=== PATIENT | female | born 1955 | race Caucasian/White ===

== ENCOUNTER → 2019-06-28 08:11 | Outpatient (CLI) | payer OTHER, SELFPAY ==
[2019-06-28 08:26] LABS: WBC Urine None Seen (0-5/HPF)
[2019-06-28 08:43] LABS: Appearance Urine UA CLEAR; Bilirubin Urine UA NEGATIVE (NEGATIVE); Color Urine UA YELLOW; Glucose Urine UA NEGATIVE (Negative); Ketones Urine UA NEGATIVE (NEGATIVE); Leukocyte Esterase Urine UA NEGATIVE (NEGATIVE); Nitrite Urine UA POSITIVE (Negative); Occult Blood Urine UA 1+ (Negative); Protein Urine UA NEGATIVE (Negative); Urobilinogen Urine UA 0.2 E.U./dL (0.2)
[2019-06-28 08:46] LABS: Add Manual Diff / Slide Review NO; Basophils Absolute Auto 100 /uL (0-100); Basophils Percent Auto 1.4 % (0-2); Eosinophils Absolute Auto 100 /uL (0-450); Eosinophils Percent Auto 2.4 % (2-4); Hematocrit 42.7 % (36-46); Hemoglobin 14.6 g/dL (12.0-16.0); Lymphocytes Absolute Auto 1900 /uL (1100-4500); Lymphocytes Percent Auto 39.1 % (25-40); Mean Corpuscular HGB Conc 34.3 % (30-36); Mean Corpuscular Hemoglobin 31.6 PG (26-34); Mean Corpuscular Volume 92.3 fL (80-100); Monocytes Absolute Auto 400 /uL (0-900); Monocytes Percent Auto 7.7 % (3-14); Neutrophils Absolute Auto 2400 /uL (1500-7000); Neutrophils Percent Auto 49.4 % (50-75); Platelet Count 349 X10^3/uL (150-400); Red Blood Cell Count 4.63 X10^6/uL (4.0-5.2); Red Cell Distribution Width 13.4 % (11.6-14.8); White Blood Cell Count 4.8 X10^3/uL (4.5-11.0)
[2019-06-28 08:51] LABS: RBC Urine 5-10/HPF (0-5/HPF); Squamous Epithelial Cell Urine 0-1 /HPF (0-5/HPF)
[2019-06-28 08:52] LABS: Bacteria Urine Many (>30); Culture Indicated Urine Specimen Cultured
[2019-06-28 08:59] LABS: Hemoglobin A1C% w Est Avg Glu 5.1 % (4.0-6.0)
[2019-06-28 09:04] LABS: BUN Creatinine Ratio 25.6 (6-22); Blood Urea Nitrogen 23 mg/dL (7-17); Calcium 10.3 mg/dL (8.4-10.2); Carbon Dioxide 30 mmol/L (22-32); Chloride 102 mmol/L (98-107); Estimated Glomerular Filt Rate > 60.0 mL/min (>60); Glucose 100 mg/dL (80-110); HEMOLYSIS < 15 (0-50); Potassium 4.8 mmol/L (3.4-5.1); Sodium 139 mmol/L (137-145)
== END ==
PROVIDERS: Referring Provider Orthopaedic Surgery; Visit Provider Orthopaedic Surgery
DX: Z01.818 Encounter for other preprocedural examination (principal); Z01.812 Encounter for preprocedural laboratory examination; N39.9 Disorder of urinary system, unspecified; Z13.1 Encounter for screening for diabetes mellitus; R73.9 Hyperglycemia, unspecified
CPT/HCPCS: 36415; 80048; 81001; 83036; 85025; 87077; 87086; 93005; 93010

== ENCOUNTER → 2019-10-07 11:47 | Outpatient (CLI) | payer OTHER, SELFPAY ==
[2019-10-08 01:49] LABS: COVID19 Sendout Not Detected (Not Detect)
== END ==
PROVIDERS: Visit Provider Physician Assistant
DX: Z01.812 Encounter for preprocedural laboratory examination (principal)
CPT/HCPCS: 87635

== ENCOUNTER 2019-10-10 10:07 | Day surgery (SDC) | payer OTHER, SELFPAY ==
[2019-10-08 12:49] VITALS: BMI 27.1
[2019-10-10] VITALS (18 sets, daily range): BP systolic 111–136; BP diastolic 49–80; PULSE 69–97; RESP 10–18; TEMP 36.2–37.7; O2SAT 92–99; BMI 27.1
--- NOTE | 2019-10-10 | DI.RAD.S_ITS ---
PROCEDURE: XR HIP W PEL IF DONE LT 2V INDICATIONS: HIP ARTHROPLASTY TECHNIQUE: AP pelvis with lateral view(s) of the left hip(s). COMPARISON: None. FINDINGS: Spot fluoroscopic intraoperative images demonstrating left hip arthroplasty in expected intraoperative alignment. Dictated by: Aldo Tellez M.D. on 10/10/2019 at 15:51 Approved by: Aldo Tellez M.D. on 10/10/2019 at 15:52
--- NOTE | 2019-10-10 06:00 | DI.RAD.S_ITS ---
PROCEDURE: XR HIP W PEL IF DONE LT 2V INDICATIONS: total hip TECHNIQUE: AP pelvis with lateral view(s) of the left hip(s). COMPARISON: [facility], , XR HIP W PEL IF DONE LT 2V, 10/10/2019, 14:59. FINDINGS: Bones: No fractures or dislocations. Pelvic ring appears intact. No suspicious bony lesions. Lower lumbar spondylosis and facet arthropathy. Expected postoperative alignment of left hip arthroplasty. [id number] right hip joint degeneration. Soft tissues: The visualized bowel gas pattern is normal. No suspicious soft tissue calcifications. IMPRESSION: Expected postoperative alignment Dictated by: Aldo Tellez M.D. on 10/10/2019 at 16:44 Approved by: Aldo Tellez M.D. on 10/10/2019 at 16:46
[2019-10-10] MEDS: VANCOMYCIN 1,000 MG/200 ML PIGGYBACK 200 MG IV (11:02)
[2019-10-10] MEDS: ACETAMINOPHEN 325 MG TABLET 975 MG PO (11:07)
[2019-10-10] MEDS: LACTATED RINGERS 1,000 ML 42 ML IV ×2 (11:07→13:31)
[2019-10-10] MEDS: CELECOXIB 200 MG CAPSULE PO (11:08)
--- NOTE | 2019-10-10 11:21 | PM.PREOP ---
Pre-operative Note COVID-19 COVID-19 status: Negative Interval Note History & Physical reviewed/Exam performed by Physician: Yes Changes to H&P: No
--- NOTE | 2019-10-10 11:22 | PM.OP.1 ---
Operative Date/Time/Diagnoses Date of procedure: 10/10/19 Time of procedure: 11:58 Pre-op diagnosis: Severe left hip osteoarthritis Post-op diagnosis: same Procedure & Clinicians Procedure: Left total hip arthroplasty anterior approach Same procedure as scheduled: Yes Indications: The patient has had progressively worsening left hip pain with radiographic changes consistent with arthritis. Non-operative management has failed and the patient has requested total hip replacement. The risks, benefits and alternatives to surgery were discussed with the patient prior to proceeding. Risks discussed included, but were not limited to, failure to relieve pain, leg length discrepancy, dislocation, stiffness, infection, nerve damage, deep venous thrombosis, pulmonary embolism, stroke, coma, heart attack, permanent paralysis and , as well as the potential need for eventual revision of the prosthetic. Surgeon: Jen Vargas Technical Documentation Specialist: Yao Stokes Anesthesia Type: General and Spinal Operative Notes Findings: Severe left hip osteoarthritis, good stability, adequate bone Closure Type: primary Specimen(s): none sent Prosthetic devices, grafts, tissues, transplants, or devices: Vargas and Nephew size 52 cup, size 3 anthology standard offset femur, +0 head, one 15 mm screw Estimated Blood Loss (mL): 250 Blood products transfused: none Procedure in detail: The patient was brought to the operating room. Patient was carefully positioned in the supine position. Time-out was performed and antibiotics were given. Anesthesia was induced. She was positioned in the on the table in order to allow hyperextension of the hip. The left lower extremity was prepped and draped in a standard sterile fashion. An anterior left hip incision was made 1 fingerbreadth lateral to the anterior superior iliac spine and extended distally towards the greater trochanter. Dissection was carried out through skin and subcutaneous tissues. The skin and subcutaneous tissues were carefully injected with Lidocaine with epi. Superficial hemostasis was achieved. The fascia over the tensor fascia veda was defined and incised with a knife. Two Allis clamps were used to grasp the fascia. Tensor fascia veda was retracted laterally. A gelpi retractor was placed. Dissection was carried out down along the neck. The circumflex vessels were carefully identified and cauterized with the Aqua Mantis. There was good visualization of the femoral neck. A Cobra was placed superior to the neck and the gluteus fibers were carefully stripped from that superior aspect of the capsule. A 2nd retractor was placed along the inferior aspect of the neck. The rectus insertion along the capsule was partially released. A 3rd retractor that was then gently placed over the rim of the acetabulum under the rectus. Capsule was carefully incised and released from the intertrochanteric line circumferentially superior to the mid sagittal line and inferiorly to the mid sagittal line until the lesser trochanter was palpable. A tag stitch was placed both in the superior and inferior limb of the capsular insertion. Along the acetabulum capsule was also released up to the mid sagittal 12:00 position. A portion of the labrum was resected. A saw was used to perform an osteotomy at the level of the intertrochanteric line and the junction of the superior femoral neck leaving approximately 1 finger breath of residual inferior neck above the lesser trochanter. A 2nd cut was made along the femoral neck at the base of the head and a napkin ring of neck was removed. Corkscrew was placed in the femoral head and the head was removed without difficulty. Retractors were then repositioned around the acetabulum. Residual labrum was resected and additional osteophytes were removed. A reamer that was 4 mm below the templated size was placed by hand in the acetabulum and it was reamed to centralize the acetabulum. It was then reamed up to 2 under the templated size and fluoroscopy was brought in to confirm the position of the reaming and depth of reaming. I reamed 1 under the anticipated size. She had very tight hip and an inflamed synovium. A trial cup was placed and noted that it was appropriately sized and fluoroscopy confirmed position and depth. The component was open and inserted without difficulty fluoroscopic imaging was used to confirm that the cup had been adequately seated and was well positioned. It was further seeing stabilized with a single screw. Neutral poly liner was placed. The cup was tested and noted to be stable. Attention was then directed to the femur. The femur was gently hyperextended additional capsular release was performed as needed in order to allow adequate visualization of the proximal femur with elevation of the femur. Patient was placed in a hyperextended slightly adducted position with maximum external rotation. Box osteotome was used to check for any residual neck as well as sclerotic bone along the trochanter. Villanueva pepper was placed in the femur. Additional broaching was performed. Canal finder was used to determine the alignment of the canal and position. Size 1 broach was placed. The canal was then appropriately broached up to the templated size as long as there was adequate stability of the broach and serial advancement of the broach without excessive impingement. Specific attention was directed at avoiding varus attempting to direct the distal aspect of the broach more anteriorly and avoiding excessive anteversion. Trial reduction showed acceptable range of motion, good stability, no posterior impingement, religious of leg length and appropriate lateral shuck. I also hyperflexed the hip and checked that there was no impingement anteriorly and there was good stability with flexion, adduction and internal rotation. Marcaine and Exparel were injected. The stem was placed without difficulty. Repeat trial reduction and x-ray showed acceptable overall position, length, and no evidence of the femoral fracture. Final head was placed. Wound was meticulously irrigated with normal saline. The hip was reduced and additional Exparel and Marcaine were injected. The capsule was closed with interrupted nonabsorbable sutures. The fascia of the tensor was closed with interrupted and running Vicryl. No drain was placed. Any tensor fascia veda muscle that appeared to be contused or injured which was a minimal amount was carefully resected. Capsule around the tensor was injected with Exparel and Marcaine. The skin was closed with barbed stitches for the subcutaneous tissue and skin. We also used surgical glue. The wound was dressed sterilely. Brief Betadine soak was also used and was meticulously irrigated with normal saline. Patient was transferred to recovery room in satisfactory condition. Complications: none Post-operative Condition: stable Disposition: Acute Care Plan for aftercare: The patient will be maintained on a standard total hip replacement protocol with weight bearing as tolerated and anterior hip precautions. The patient will receive Aspirin and sequential compression devices for DVT prophylaxis. The patient will be discharged home when safe for the home environment.
[2019-10-10] MEDS: CEFAZOLIN 2 GM/100 ML FROZ.PIGGY IV ×2 (12:30→20:06)
[2019-10-10] MEDS: TRANEXAMIC ACID 1,000 MG VIAL 1000 MG INJ ×2 (12:39→15:22)
--- NOTE | 2019-10-10 13:03 | SUR.OPER ---
Supine on padded [place] table with bilateral legs secured in padded positioning boots and suspended in positioning spars, operative leg in traction per surgeon. Head on one pillow. Arm on non-operative side secured on padded armboard <90 degrees abduction. Arm on operative side padded and resting across chest then secured with tape over sheet. Padded perineal post in place per surgeon.
[2019-10-10] MEDS: BUPIVACAINE 0.25% W/ EPI 30 ML VIAL 60 ML INJ (13:10)
[2019-10-10] MEDS: BUPIVACAINE LIPOSOME 266 MG/20 ML VIAL INJ (13:11)
[2019-10-10] MEDS: SODIUM CHLORIDE IRRIG SOLUTION 250 ML, POVIDONE-IODINE SPONGE STICKS 1 APPLIC IRR (13:12)
[2019-10-10] MEDS: MEPERIDINE 50 MG/ML INJ 12.5 MG IV ×2 (15:58→16:14)
[2019-10-10] MEDS: ONDANSETRON 4 MG/2 ML INJ IV (16:17)
[2019-10-10] MEDS: OXYCODONE IR 5 MG TABLET PO (16:17)
[2019-10-10] MEDS: LACTATED RINGERS 1,000 ML 125 ML IV (17:28)
[2019-10-10] MEDS: IBUPROFEN 400 MG TABLET PO (17:29)
[2019-10-10] MEDS: ASPIRIN EC 81 MG TABLET PO (20:06)
[2019-10-10] MEDS: ACETAMINOPHEN 325 MG TABLET 650 MG PO (20:06)
[2019-10-10] MEDS: DOCUSATE 100 MG CAPSULE PO (20:07)
[2019-10-11] MEDS: IBUPROFEN 400 MG TABLET PO ×3 (00:53→08:34)
[2019-10-11] MEDS: LACTATED RINGERS 1,000 ML 125 ML IV (01:35)
[2019-10-11] MEDS: CEFAZOLIN 2 GM/100 ML FROZ.PIGGY IV (04:14)
[2019-10-11 04:38] VITALS: BP 104/57; PULSE 77; RESP 16; TEMP 36.4; O2SAT 97
[2019-10-11 06:05] LABS: Hematocrit 29.7 % (36-46); Hemoglobin 10.2 g/dL (12.0-16.0)
[2019-10-11 07:50] VITALS: BP 95/44; PULSE 71; RESP 16; TEMP 36.6; O2SAT 97
--- NOTE | 2019-10-11 08:15 | PC.NURSE ---
Patients anterior left hip dressing is cdi. She is up with 1 person assist and denies pain at this time. She is heplocked and eating breakfast now. CMS wnl and ppx2.
[2019-10-11] MEDS: DOCUSATE 100 MG CAPSULE PO (08:34)
[2019-10-11] MEDS: ACETAMINOPHEN 325 MG TABLET 650 MG PO (08:34)
[2019-10-11] MEDS: ASPIRIN EC 81 MG TABLET PO (08:34)
--- NOTE | 2019-10-11 09:30 | PT.IIE ---
Current Diagnoses Bilateral primary osteoarthritis of hip (10/10/19) Pain in left hip (10/10/19) Surgery Performed Operation Date: 10/10/19 12:15 Actual Procedures p Total Hip Arthroplasty/Anterior Approach(Left) - Jen Vargas MD Surgical History (Last Updated 10/08/19 @ 13:13 by Brandi Pradhan, RN) History of bunionectomy of left great toe (Acute 10/2018) History of partial hysterectomy (Acute) Hx of foot surgery (Acute 10/2018) Hx of left breast biopsy (Acute 10/02/19) Hx of tonsillectomy (Acute) S/P LASIK surgery of both eyes (Acute) Medical History (Last Updated 10/08/19 @ 13:02 by Brandi Pradhan RN) Migraines (Acute) Physical Therapy Inpatient Evaluation/Re-Eval M1 PT/OT-IP Prior Functional Status Start: 10/11/19 12:54 Freq: NEEDED Status: Active Protocol: Document 10/11/19 09:30 AB (Rec: 10/11/19 13:22 AB [id number]) Medical Review Prior Functional Status Medical History Reviewed Yes Communication able to make needs known Mobility and Gait pt agreeable to do PT Social History Household Members spouse Living Arrangements House Number of Floors (Floors) One Floor Number of Stairs To Enter/Railing? 1 step to enter Home Environment Standard Height Toilet,Walk in Shower,Built-In Shower Seat Home Equipment Front Wheel Walker,Hand Held Shower M2 PT-IP Current Condition Start: 10/11/19 12:54 Freq: NEEDED Status: Active Protocol: Document 10/11/19 09:30 AB (Rec: 10/11/19 13:22 AB [id number]) Physical Therapy Current Condition Current Condition Evaluation Date 10/11/19 Treatment Diagnosis s/p L VIRGIL anterior approach; difficulty in walking Onset Date 10/10/19 Precautions Anterior Hip Precautions No Hip Extension,No Hip External Rotation Weight Bearing Status Weight Bearing Status Weight Bear as Tolerated M3 PT-IP Subjective Start: 10/11/19 12:54 Freq: NEEDED Status: Active Protocol: Document 10/11/19 09:30 AB (Rec: 10/11/19 13:22 AB [id number]) Subjective Physical Therapy Visit Type Type Initial Evaluation Visit Start Time 09:30 Visit Stop Time 10:35 Total Visit Minutes 65 Number of PACKAGE CRIMPER Visits 0 Physical Therapy Visit Comments Patient Comments pt is agreeable to do PT Therapy Pain Assessment Pain Present Pain Present Denied Pain M4 PT-IP Mobility and Gait Start: 10/11/19 12:54 Freq: NEEDED Status: Active Protocol: Document 10/11/19 09:30 AB (Rec: 10/11/19 13:22 AB [id number]) PT-Bed Mobility Assessment Supine to Sit Supine to Sit Standby Assistance Sit to Supine Sit to Supine Standby Assistance Scooting Scooting to Edge of Bed Standby Assistance PT-Transfer Assessment Sit to and From Stand Sit to and from Stand Standby Assistance,Contact Guard Assistance,1 Person Assistance,Use of Upper Extremities Equipment Transfer Assistive Device Gait Belt,Front Wheeled Walker Orthotic/Prosthetic Devices or Brace: Yes Transfers Transfer Destination Chair,Bedside Commode Transfer Technique ambulated using FWW Transfer Ability Level of Assist Contact Guard Assistance, Minimal Assistance,1 Person Assistance,Use of Upper Extremities Comments Mobility Comments BP: 96/56. pt completed supine to sit SBA and cues and able to sit on EOB SBA. pt initially without complaints but then stated that she is nauseated. emesis bag given and nurse alerted. BP checked : 86/67. pt took deep breaths and after a few seconds stated that she feels better. BP checked again in sittin/69. pt remained seated and BP monitored. BP taken after 2 mins again: 102/51. pt completed transfer to bedside commode CGA using FWW. BP: 98 /67. pt completed toileting and remained standing for a few minutes. BP checked in standin/59. pt ambulated in room ~ 30 ft using FWW SBA to CGA. sat back on chair. BP: 109/60. pt agreed to ambulate in hallway and completed ~ 125 ft using FWW SBA. pt without any complaints. completed stair climbing. pt ambulated back to her room 200 ft using FWW SBA and agreed to sit up on her chair. positioned on her chair. call light and table placed within reach. informed nurse regarding pt's mobility and d/c plan. Gait Assessment Gait Gait Assistance Required: Standby Assistance,Contact Guard Assist Distance (Feet) 200 Able to Maintain Weight Bearing Status Yes During Gait Assistive Devices Assistive Device Gait Belt,Front Wheeled Walker Orthotic/Prosthetic Devices or Brace: No Gait Deviations General Gait Pattern Antalgic,Decreased Stride Length,Decreased Feet Clearance Factors Limiting Gait Function Factors Limiting Gait Function Decreased Activity Tolerance, Decreased Strength,Limited Range of Motion,Poor Balance Comments Gait Comments pls refer to mobility section for details Stair Climbing Assessment Evaluation Level of Assist On Stairs Contact Guard Assistance,1 Person Assistance Devices Stair Climbing Assistive Devices Front Wheel Walker Technique/Endurance Stair Climbing Direction Ascend and Descend Stair Climbing Technique Step to Step Number of Steps Climbed 1 Query Text: Stair Climbing Set # Repetitions (reps) 2 Comments Stair Climbing Comments completed up/down platform step x 2 reps CGA. PT-Balance Assessment Sitting Balance and Reactions Static Sitting Balance Ability Good Dynamic Sitting Balance Ability Good Standing Balance and Reactions Static Standing Balance Ability Fair Dynamic Standing Balance Ability Fair Device Used FWW M5 PT-IP Objective Assessments Start: 10/11/19 12:54 Freq: NEEDED Status: Active Protocol: Document 10/11/19 09:30 AB (Rec: 10/11/19 13:22 AB [id number]) Orientation Orientation/Cognition Level of Alertness Alert Orientation Name,Place,Situation Safety Awareness Decreased Safety Awareness Gross Range of Motion Lower Extremity ROM Assessment Within Functional Limits Strength Lower Extremity Strength Assessment Left Impaired Hip 3+/5 Knee 4-/5 Coordination Assessment Gross Coordination Gross Coordination WNL Sensation Assessment Sensation Gross Sensation WNL Muscle Tone Muscle Tone WNL Yes M6 PT-IP Treatment Start: 10/11/19 12:54 Freq: NEEDED Status: Active Protocol: Document 10/11/19 09:30 AB (Rec: 10/11/19 13:22 AB [id number]) Physical Therapy Treatment Exercises Exercises Heel Slides Education Education Provided Precautions,Weight Bearing Status,Post-Op Packet,Safety M7 PT-IP Assessment and Plan Start: 10/11/19 12:54 Freq: NEEDED Status: Active Protocol: Document 10/11/19 09:30 AB (Rec: 10/11/19 13:22 AB [id number]) PT Summary Assessment and Plan Potential Rehabilitation Potential Good Status of Condition at Evaluation Stable Summary Impairments Pain,ROM,Strength,Balance, Coordination,Sensation,Tone, Cognition,Bed Mobility, Transfers,Gait,Activity Tolerance Assessment Summary pt requiring SBA with mobility and plans to go home with her spouse to assist her. pt stated that she already has outpt PT set up. pt may go home when medically stable. Goals Bed Mobility Goal Independent Transfer Goal Independent,Front Wheeled Walker Gait Goal Independent,Front Wheel Walker Gait Distance 250 Other Goals up/down 1 step using FWW mod I Days to Meet Goals 3 Frequency of Treatment Frequency Of Treatment Twice a Day Treatment Plan Physical Therapy Treatment Plan Bed Mobility Training,Transfer Training,Gait Training, Therapeutic Exercise,Balance Retraining,Post Op Education, Discharge Planning,Hot or Cold Pack,Neuromuscular Re-ed, Coordination Retraining,Manual Therapy Recommendations To Nursing Amount of Assist Needed 1 Person Assist Discharge Recommendations PT Discharge Recommendations Home with Assistance, Outpatient PT Transportation Needs at Discharge Private Vehicle
[2019-10-11 11:21] VITALS: BP 104/55; PULSE 82; RESP 15; O2SAT 98
--- NOTE | 2019-10-11 12:02 | CM.DANOTE ---
Addendum entered by Marta Dooley LPN 10/11/19 12:20: We're all ready to leave. We are just waiting for Dr. Vargas to get here. Checked in with pt and her . Introduced self and role. Pt is packed up in prep for return home to [place]. Both say they feel very comfortable, after working with PT, re the d/c today. OutPT PT is planned at [facility] in [place]. Original Note: Discharge Planning/Care Management DCP: Assessment: case received, EMR reviewed. Discussed case in Team Rounds. PT confirmed that pt will have her first eval/treat session today. Pt is a 64 year old female who admitted yesterday for a scheduled L VIRGIL. Surgeon: Dr. Jonathan Vargas Payre: Yoana Pt's pre-op plan is for home with supportive assist. Will check in now and follow. CM Discharge Assessment Start: 10/11/19 12:01 Freq: Status: Active Protocol: Document 10/11/19 12:01 ITV (Rec: 10/11/19 12:02 ITV [id number]) Discharge Planning Assessment Advance Directives? No History Provided By Patient,Medical Record Prior Living Arrangements House Household Members spouse Review Status In Process Pre-Anesthesia Assessment Start: 10/08/19 12:49 Freq: Status: Active Protocol: Document 10/08/19 12:49 CAB (Rec: 10/08/19 13:32 CAB [id number]) Pre-Anesthesia Assessment Preferred Name Che Patient Information Reviewed Via Phone Assessment Assessment Completed With Patient H&P Completed Within 30 Days Yes Diagnostic Results BMP/CMP,CBC,EKG,Urinalysis Comment Labs/EKG @ [facility] COVID screen @ [facility] 10/07/19 Negative Primary Care Provider Goldie Powell Seen Specialist in Last 12 Months Yes Specialist Seen Orthopedist Primary Language [facility] Required No Height 165.1 cm Weight 73.936 kg Body Mass Index (BMI) 27.1 Hearing Ability Normal Visual Assist Contacts,Glasses Dentition Type Teeth, Natural Present Barriers to Learning None Hx Anesthesia Reactions No Hx Family Anesthesia Reaction No Hx Malignant Hyperthermia No Hx Blood Transfusions No Anesthesia Review Requested No alcohol intake current alcohol intake frequency 0-2 drinks per day Smoking Status Never smoker Substance Use Type does not use Pain Present Pain Reported Musculoskeletal Symptoms Abnormal Gait,Difficulty Walking,Joint Pain History of Falling (Recent or History of No ) Patient is completely paralyzed or No completely immobile Mental Status Oriented to own ability Is patient on oxygen? No Does patient have LOMAX/SOB No Hx Sleep Apnea No Currently Taking a Beta Kishore No Can You Climb a Flight of Stairs Without Yes SOB Hx Chest Pain No Hx SOB No Hx Syncope or Dizziness No Anti-Coagulant Therapy No Has a Power Screwdriver Operator No Cardiac Testing No Hx Pacemaker/ICD No Pacemaker Rep Required? No Cardiac Clearance Received Not Applicable Diet Type At Home Regular dysphagia No Urinary Catheter Present No Hx Urinary Self Catheterization No Diabetes No HgbA1C 5.1 Date 06/28/19 Patient No Lactating No Hx Drug Resistant Organism No Presence of External or Internal Medical No Devices Have you had any close contact with No someone diagnosed with COVID-19? Evaluation/Screening for possible COVID- Yes 19 infection completed? Marital Status Lives With spouse Prior Living Arrangements House Number of Floors (Floors) One Floor Support System Spouse Does the Patient Have Assistance After Yes Surgery Patient Discharge Plan Description Return Home Comment Pt advised possible same day surgery Feels Safe in Current Environment Yes Been Physically Hurt or Threatened By a No Person in Current Environment Do you have thoughts of harming yourself None or others? Are you currently considering suicide? No Do you have a plan to hurt yourself or No Plan others? Do You Have Any Spiritual Beliefs That No May Affect Your HC Choices? Do You Have Any Cultural Practices That No May Affect Your HC Choices? Comment Restorationism Who Can We Speak to About Patient's Care Family, friends Identifying Code for Release of Patient Declines to issue Information Health Care Proxy/Next of Kin Scott Bartlett () Health Care Proxy Emergency Contact Name Scott Bartlett () Emergency Contact Advance Directives? No Power of Advertising Sales Assistant No PAC Instructions Durable medical equipment, Medications to take/avoid, Nasal antibiotic,No ETOH/ petroleum product on skin DOS, NPO,Post-op transportation,Pre -surgical wash,Sensory aids, Sturdy shoes/comfortable clothes,Do not bring valuables and remove jewelry
--- NOTE | 2019-10-11 12:37 | PM.PN.1 ---
Subjective Subjective Date Patient Seen: 10/11/19 Time Patient Seen: 12:37 Interval history: Mary is doing well after her left total hip arthroplasty. She has been up with physical therapy was able to ambulate well and is resting in the chair dressed and ready to go home. Exam Vital Signs (past 8 hours): - 10/11/19 04:38 10/11/19 07:50 10/11/19 11:21 Temperature 97.6 F 97.8 F Pulse Rate 77 71 82 Respiratory Rate 16 16 15 Blood Pressure 104/57 L 95/44 L 104/55 L Pulse Oximetry 97 97 98 Oxygen Delivery Method Room Air Oxygen Flow Rate 0 Narrative Exam Narrative: Abdomen soft and benign her dressing is dry her calfs are soft bilaterally she has really no pain with range of motion in her hip and she is able to do an active straight leg raise. Objective Labs Result Diagrams: 10/11/19 05:40 Labs: Laboratory Results - last 24 hr 10/11/19 05:40 Hgb 10.2 L Hct 29.7 L Assessment & Plan Assessment & Plan narrative: Doing well status post left total hip arthroplasty. Plan continue to ambulate and were going to discharge her to home. She has outpatient physical therapy and an appointment scheduled for postoperative care. She can take baby aspirin for DVT prophylaxis.
== END 2019-10-11 12:54 | disposition home or self-care (01) ==
LOC: OR 10:10 → AC 10:11
PROVIDERS: Referring Provider Orthopaedic Surgery; Visit Provider Orthopaedic Surgery
PROC: (CPT 27130; principal; 2019-10-10 12:15)
DX: M16.12 Unilateral primary osteoarthritis, left hip (principal); G43.909 Migraine, unspecified, not intractable, without status migrainosus
CPT/HCPCS: 27130; 36415; 73502; 76000; 85014; 85018; 97116; 97161; 97530; C1776; C9290; J0171; J0690; J1100; J1170; J2175; J2250; J2405; J2704; J3010

== ENCOUNTER 2021-06-29 08:14 | Emergency (ER) | payer OTHER, SELFPAY ==
[2019-10-10 17:45] VITALS: BMI 27.1
[2021-06-29] VITALS (9 sets, daily range): BP systolic 112–139; BP diastolic 65–79; PULSE 76–87; RESP 16–26; TEMP 36.7; O2SAT 96–99; BMI 28.3
--- NOTE | 2021-06-29 08:44 | DI.CT.S_ITS ---
PROCEDURE: CT ABDOMEN PELVIS WO CON INDICATIONS: llq pain TECHNIQUE: Noncontrast 5 mm thick sections acquired from the diaphragms to the symphysis. 5 mm coronal and sagittal reformats were then performed. For radiation dose reduction, the following was used: automated exposure control, adjustment of mA and/or kV according to patient size. COMPARISON: None. FINDINGS: Image quality: Excellent. ABDOMEN: Lung bases: Lung bases are clear. Heart size is normal. Solid organs: Liver is normal in size. Gallbladder is unremarkable . Pancreas is normal in contours. Spleen is normal in size. No adrenal nodules. Kidneys are normal in size, without hydronephrosis. Small bilateral nonobstructing renal stones are present. Peritoneum and bowel: Diffuse colonic diverticulosis. Acute diverticulitis involving junction between the distal descending colon the sigmoid colon. The bowel wall is thickened in this area and there is pericolonic inflammation. No free fluid or air. Nodes and vessels: No retroperitoneal or mesenteric adenopathy by size criteria. Aorta and inferior vena cava are normal in caliber. Miscellaneous: No ventral hernias. PELVIS: Genitourinary: Bladder wall thickness is normal. Miscellaneous: Uterus is surgically absent. Bilateral small fat containing inguinal hernias. No inguinal adenopathy. Bones: No suspicious bony lesions. No vertebral body compression fractures. Lumbar degenerative change. Remote total left hip arthroplasty. IMPRESSION: 1. Acute diverticulitis of the junction between the distal descending colon and the sigmoid colon. Comment: Recommend direct visualization utilizing colonoscopy after clinical symptoms have resolved, if this patient has not had recent colonoscopy. Dictated by: Adam Jauregui M.D. on 06/29/2021 at 8:21 Approved by: Adam Jauregui M.D. on 06/29/2021 at 8:26
[2021-06-29 08:45] LABS: Add Manual Diff / Slide Review NO; Basophils Absolute Auto 0 /uL (0-100); Basophils Percent Auto 0.5 % (0-2); Eosinophils Absolute Auto 100 /uL (0-450); Eosinophils Percent Auto 1.7 % (2-4); Hematocrit 39.2 % (36-46); Hemoglobin 13.4 g/dL (12.0-16.0); Lymphocytes Absolute Auto 1200 /uL (1100-4500); Lymphocytes Percent Auto 15.4 % (25-40); Mean Corpuscular HGB Conc 34.1 % (30-36); Mean Corpuscular Hemoglobin 31.3 PG (26-34); Mean Corpuscular Volume 91.6 fL (80-100); Monocytes Absolute Auto 600 /uL (0-900); Monocytes Percent Auto 7.5 % (3-14); Neutrophils Absolute Auto 5900 /uL (1500-7000); Neutrophils Percent Auto 74.9 % (50-75); Platelet Count 332 X10^3/uL (150-400); Red Blood Cell Count 4.28 X10^6/uL (4.0-5.2); Red Cell Distribution Width 13.1 % (11.6-14.8); White Blood Cell Count 7.9 X10^3/uL (4.5-11.0)
--- NOTE | 2021-06-29 08:46 | ED.ABDPAIN ---
HPI - Abdominal Pain General Chief Complaint: Abdominal Pain Stated Complaint: Left lower quad pain/blood in stool x4 days ?diver Time Seen by Provider: 06/29/21 08:30 Source: patient and family Mode of arrival: Ambulatory History of Present Illness HPI narrative: Patient is a 66-year-old female with a history of migraines he has not been to a doctor in over 5 years presenting today with left lower quadrant pain ongoing for the last 5 days. She has intermittently had some blood in her stool. She has a known hemorrhoid. She is not on any anticoagulation or anti-platelet medication. She denies fever or chills. She is nauseous but no vomiting. She does drink alcohol daily 1 bottle every 2 days. Denies any chest pain shortness of breath, painful or frequent urination. Patient did take 2 doses of Cipro from her . He previously had diverticulitis and he gave her 2 of his antibiotics. Related Data Home Medications Medication Instructions Recorded Confirmed ibuprofen 200 mg capsule 400 mg PO Q6H PRN 10/08/19 10/08/19 sumatriptan succinate 100 mg 50 mg PO Q2-4H PRN 10/08/19 10/10/19 tablet (Imitrex) Previous Rx's Medication Instructions Recorded aspirin 81 mg tablet,delayed 81 mg PO BID #60 tab 10/11/19 release tramadol 50 mg tablet 50 mg PO TID PRN #20 tab 10/11/19 ciprofloxacin HCl 500 mg tablet 500 mg PO BID #20 tab 06/29/21 (Cipro) metronidazole 500 mg tablet 500 mg PO Q8H 10 Days #30 tab 06/29/21 Allergies Allergy/AdvReac Type Severity Reaction Status Date / Time amoxicillin Allergy Severe Hives Verified 10/08/19 13:03 Review of Systems Review of Systems Narrative: GENERAL: Denies chills, fatigue, malaise, fever, sweats, travel HEENT: Denies sinus pain, ear pain, sore throat, difficulty swallowing, neck pain RESPIRATORY: Denies dyspnea, cough, wheezing, hemoptysis, sputum. CARDIOVASCULAR: Denies chest pain, palpitations, orthopnea, edema GASTROINTESTINAL: See HPI : Denies dysuria, frequency, incontinence, hematuria, urinary retention, flank pain. MUSCULOSKELETAL: Denies weakness, joint pain, or bony pain SKIN: No rash, no erythema, no pruritus NEUROLOGIC: Denies weakness, dizziness, headache, numbness, change in speech, confusion PSYCHIATRIC: No concerning psychosocial issues. 12 point review of systems is negative except for those stated above and HPI Patient History Medical History Migraines Surgical History History of bunionectomy of left great toe (10/2018) History of partial hysterectomy Hx of foot surgery (10/2018) Hx of left breast biopsy (10/02/19) Hx of tonsillectomy S/P LASIK surgery of both eyes Social History household members: spouse Smoking Status: Never smoker alcohol intake: current Smoking Status: Never smoker alcohol intake frequency: 0-2 drinks per day Substance Use Type: does not use Exam Initial Vital Signs Initial Vital Signs: Vital Signs Pulse Oximetry 97 06/29/21 08:21 GENERAL: Alert well-appearing 66-year-old female and in no acute distress. HEENT: Head atraumatic,EOMI, pupils reactive, face symmetric, moist mucous membranes CARDIOVASCULAR: Regular rate and rhythm without murmurs, rubs or gallops. RESPIRATORY: Breath sounds equal bilaterally, no wheezes rales or rhonchi. ABDOMEN: Soft, tender left lower quadrant no guarding no rebound no right lower quadrant pain negative Tenorio sign : No CVA tenderness EXTREMITIES: Normal range of motion, no clubbing or edema. Neurovascularly intact NEUROLOGICAL: Alert and oriented x4.Normal gait and speech. SKIN: Warm, dry, no laceration, no petechiae, no rashes or lesions. Course Orders Ordered: ED Orders 06/29/21 08:35 Complete Blood Count AUTO DIFF Stat Comprehensive Metabolic Panel Stat Lactate (Lactic Acid) Stat Lipase Stat PT [Prothrombin Time INR] Stat PTT [Partial Thromboplastin Time] Stat 06/29/21 08:44 CT abdomen pelvis wo con Stat 06/29/21 09:24 Urinalysis and Microscopic Stat Urine Culture Stat Vital Signs Vital signs: Vital Signs - 8 hr 06/29/21 08:21 06/29/21 08:22 06/29/21 08:26 Temperature 98.1 F Pulse Rate 81 84 Respiratory Rate 18 Blood Pressure 139/75 139/75 Pulse Oximetry 97 99 99 06/29/21 08:30 06/29/21 09:00 06/29/21 09:14 Temperature Pulse Rate 82 76 87 Respiratory Rate 21 21 Blood Pressure 120/68 112/72 119/74 Pulse Oximetry 99 99 98 06/29/21 09:30 06/29/21 10:00 06/29/21 10:18 Temperature 98.1 F Pulse Rate 79 80 82 Respiratory Rate 26 H 24 16 Blood Pressure 118/65 120/79 120/79 Pulse Oximetry 97 96 96 MDM - Abdominal Pain Lab Data Result diagrams: 06/29/21 08:35 06/29/21 08:35 Labs: Lab Results 06/29/21 06/29/21 06/29/21 Range/Units 08:35 08:35 08:35 WBC 7.9 (4.5-11.0) X10^3/uL RBC 4.28 (4.0-5.2) X10^6/uL Hgb 13.4 (12.0-16.0) g/dL Hct 39.2 (36-46) % MCV 91.6 (80-100) fL MCH 31.3 (26-34) PG MCHC 34.1 (30-36) % RDW 13.1 (11.6-14.8) % Plt Count 332 (150-400) X10^3/uL Neut % (Auto) 74.9 (50-75) % Lymph % (Auto) 15.4 L (25-40) % Stevens % (Auto) 7.5 (3-14) % Eos % (Auto) 1.7 L (2-4) % Baso % (Auto) 0.5 (0-2) % Neut # (Auto) 5900 (6727-9235) /uL Lymph # (Auto) 1200 (9574-5691) /uL Stevens # (Auto) 600 (0-900) /uL Eos # (Auto) 100 (0-450) /uL Baso # (Auto) 0 (0-100) /uL PT 12.7 (10.1-12.7) SECONDS INR 1.1 (0.9-1.3) APTT 30 (26.4-36.2) SECONDS Sodium 136 L (137-145) mmol/L Potassium 4.3 (3.4-5.1) mmol/L Chloride 103 (98-107) mmol/L Carbon Dioxide 26 (22-32) mmol/L BUN 18 H (7-17) mg/dL Creatinine 0.71 (0.52-1.04) mg/dL Estimated GFR > 60.0 (>60) mL/min BUN/Creatinine Ratio 25.4 H (6-22) Glucose 94 (80-110) mg/dL Lactate (0.7-2.1) mmol/L Calcium 9.3 (8.4-10.2) mg/dL Total Bilirubin 0.5 (0.2-1.3) mg/dL AST 23 (14-36) IU/L ALT 16 (<35) IU/L Alkaline Phosphatase 65 (38-126) U/L Total Protein 7.8 (6.3-8.2) g/dL Albumin 4.4 (3.5-5.0) g/dL Globulin 3.4 (1.7-4.1) g/dL Albumin/Globulin Ratio 1.3 (1.0-2.8) Lipase 102 (23-300) U/L Urine Color Urine Appearance Urine pH (4.5-8.0) Ur Specific [place] (1.000-1.035) Urine Protein (Negative) Urine Glucose (UA) (Negative) g/dL Urine Ketones (NEGATIVE) Urine Occult Blood (Negative) Urine Nitrate (Negative) Urine Bilirubin (NEGATIVE) Urine Urobilinogen (0.2) E.U./dL Ur Leukocyte Esterase (NEGATIVE) Urine RBC (0-5/HPF) Urine WBC (0-5/HPF) Ur Squamous Epith Cells (0-5/HPF) Urine Bacteria (None) Ur Culture Indicated? 06/29/21 06/29/21 Range/Units 08:35 09:24 WBC (4.5-11.0) X10^3/uL RBC (4.0-5.2) X10^6/uL Hgb (12.0-16.0) g/dL Hct (36-46) % MCV (80-100) fL MCH (26-34) PG MCHC (30-36) % RDW (11.6-14.8) % Plt Count (150-400) X10^3/uL Neut % (Auto) (50-75) % Lymph % (Auto) (25-40) % Stevens % (Auto) (3-14) % Eos % (Auto) (2-4) % Baso % (Auto) (0-2) % Neut # (Auto) (4552-0538) /uL Lymph # (Auto) (2998-4318) /uL Stevens # (Auto) (0-900) /uL Eos # (Auto) (0-450) /uL Baso # (Auto) (0-100) /uL PT (10.1-12.7) SECONDS INR (0.9-1.3) APTT (26.4-36.2) SECONDS Sodium (137-145) mmol/L Potassium (3.4-5.1) mmol/L Chloride (98-107) mmol/L Carbon Dioxide (22-32) mmol/L BUN (7-17) mg/dL Creatinine (0.52-1.04) mg/dL Estimated GFR (>60) mL/min BUN/Creatinine Ratio (6-22) Glucose (80-110) mg/dL Lactate 0.8 (0.7-2.1) mmol/L Calcium (8.4-10.2) mg/dL Total Bilirubin (0.2-1.3) mg/dL AST (14-36) IU/L ALT (<35) IU/L Alkaline Phosphatase (38-126) U/L Total Protein (6.3-8.2) g/dL Albumin (3.5-5.0) g/dL Globulin (1.7-4.1) g/dL Albumin/Globulin Ratio (1.0-2.8) Lipase (23-300) U/L Urine Color Yellow Urine Appearance Clear Urine pH 5.5 (4.5-8.0) Ur Specific [place] 1.020 (1.000-1.035) Urine Protein Trace H (Negative) Urine Glucose (UA) Negative (Negative) g/dL Urine Ketones 3+ H (NEGATIVE) Urine Occult Blood 2+ H (Negative) Urine Nitrate Positive H (Negative) Urine Bilirubin Negative (NEGATIVE) Urine Urobilinogen 0.2 (0.2) E.U./dL Ur Leukocyte Esterase Trace H (NEGATIVE) Urine RBC 5-10/hpf H (0-5/HPF) Urine WBC 1-5/hpf (0-5/HPF) Ur Squamous Epith Cells 1-5 /hpf (0-5/HPF) Urine Bacteria Moderate (10-30) H (None) Ur Culture Indicated? Specimen cultured Point of care testing: Urine Dip Bedside Urine Glucose Negative Bedside Urine Bilirubin - Negative Bedside Urine Ketone +++ 80 Urine Specific Morgan[place] 1.025 Bedside Urine Occult Blood ++ Bedside Urine pH 6.0 Bedside Urine Protein +/- 15 Bedside Urine Urobilinogen - Negative Bedside Urine Nitrite - Negative Bedside Urine Leukocytes +/- [address] scan - abdomen/pelvis: Radiologist's Impression: PROCEDURE:? CT ABDOMEN PELVIS WO CON ? INDICATIONS:? llq pain ? TECHNIQUE:? Noncontrast 5 mm thick sections acquired from the diaphragms to the symphysis.? 5 mm coronal and sagittal reformats were then performed.? For radiation dose reduction, the following was used:? automated exposure control, adjustment of mA and/or kV according to patient size.? ? COMPARISON:? None. ? FINDINGS:? Image quality:? Excellent.? ? ABDOMEN:? Lung bases:? Lung bases are clear.? Heart size is normal.? ? Solid organs:? Liver is normal in size.? Gallbladder is unremarkable .? Pancreas is normal in contours.? Spleen is normal in size.? No adrenal nodules.? Kidneys are normal in size, without hydronephrosis.? Small bilateral nonobstructing renal stones are present. ? Peritoneum and bowel:? Diffuse colonic diverticulosis.? Acute diverticulitis involving junction between the distal descending colon the sigmoid colon.? The bowel wall is thickened in this area and there is pericolonic inflammation.? No free fluid or air.? ? Nodes and vessels:? No retroperitoneal or mesenteric adenopathy by size criteria.? Aorta and inferior vena cava are normal in caliber.? ? Miscellaneous:? No ventral hernias.? ? ? PELVIS:? Genitourinary:? Bladder wall thickness is normal.? ? Miscellaneous:? Uterus is surgically absent.? Bilateral small fat containing inguinal hernias.? No inguinal adenopathy. ? Bones:? No suspicious bony lesions.? No vertebral body compression fractures.? Lumbar degenerative change.? Remote total left hip arthroplasty. ? IMPRESSION:? ? 1. Acute diverticulitis of the junction between the distal descending colon and the sigmoid colon. ? Comment:? Recommend direct visualization utilizing colonoscopy after clinical symptoms have resolved, if this patient has not had recent colonoscopy.? ? ? Dictated by: Adam Jauregui M.D. on 06/29/2021 at 8:21 ? ? Approved by: Adam Jauregui M.D. on 06/29/2021 at 8:26 ? MDM Narrative Medical decision making narrative: Patient is found to have uncomplicated diverticulitis. She has no leukocytosis or sign of sepsis. Discussed with her Cipro and Flagyl and not to drink alcohol while taking Flagyl. At this time she understands and agrees. I discussed with both her and her when to return to the emergency department. Discharge Plan Departure Patient Disposition: Home Clinical Impression: Diverticulitis, UTI (urinary tract infection) Instructions: DI for Diverticulitis Activity Restrictions/Additional Instructions: *You have been diagnosed with diverticulitis, UTI *What to do: At this time please take antibiotics as directed. You do need to have a routine colonoscopy once diverticulitis is not an issue. *Continue to take medications as directed Cipro 500 mg twice a day for 10 Flagyl 500 mg 3 times a day for 10 days DO NOT DRINK ALCOHOL WHILE TAKING THIS MEDICATION IT WILL CAUSE VOMITING Tylenol 650 mg every 4-6 hours if needed for [id number] pain *Follow up with your primary care provider in 2-3 days or call [phone] *Return to ER if you should have increasing abdominal pain, fever, worsening bloody stool, any new, worsening or concerning symptoms Prescriptions: New metronidazole 500 mg tablet 500 mg PO Q8H 10 Days Qty: 30 0RF ciprofloxacin HCl [Cipro] 500 mg tablet 500 mg PO BID Qty: 20 0RF No Action sumatriptan succinate [Imitrex] 100 mg Tablet 50 mg PO Q2-4H PRN (Reason: Migraines) 0RF ibuprofen 200 mg Capsule 400 mg PO Q6H PRN (Reason: Pain) 0RF tramadol 50 mg Tablet 50 mg PO TID PRN (Reason: Pain, Moderate (4-6)) Qty: 20 0RF aspirin 81 mg Tablet,Delayed Release (Dr/Ec) 81 mg PO BID Qty: 60 0RF Referrals: [facility] [Provider Group]
[2021-06-29 08:54] LABS: Alanine Aminotransferase 16 IU/L (<35); Albumin 4.4 g/dL (3.5-5.0); Albumin Globulin Ratio 1.3 (1.0-2.8); Alkaline Phosphatase 65 U/L (38-126); Aspartate Aminotransferase 23 IU/L (14-36); BUN Creatinine Ratio 25.4 (6-22); Bilirubin Total 0.5 mg/dL (0.2-1.3); Blood Urea Nitrogen 18 mg/dL (7-17); Calcium 9.3 mg/dL (8.4-10.2); Carbon Dioxide 26 mmol/L (22-32); Chloride 103 mmol/L (98-107); Estimated Glomerular Filt Rate > 60.0 mL/min (>60); Globulin 3.4 g/dL (1.7-4.1); Glucose 94 mg/dL (80-110); HEMOLYSIS < 15 (0-50); INR 1.1 (0.9-1.3); Lipase 102 U/L (23-300); Potassium 4.3 mmol/L (3.4-5.1); Prothrombin Time 12.7 SECONDS (10.1-12.7); Sodium 136 mmol/L (137-145); Total Protein 7.8 g/dL (6.3-8.2)
[2021-06-29 08:56] LABS: PTT Partial Thromboplastin Tim 30 SECONDS (26.4-36.2)
[2021-06-29 08:57] LABS: Lactate (Lactic Acid) 0.8 mmol/L (0.7-2.1)
[2021-06-29 09:27] LABS: Appearance Urine UA CLEAR; Bilirubin Urine UA NEGATIVE (NEGATIVE); Color Urine UA YELLOW; Glucose Urine UA NEGATIVE (Negative); Ketones Urine UA 3+ (NEGATIVE); Leukocyte Esterase Urine UA TRACE (NEGATIVE); Nitrite Urine UA POSITIVE (Negative); Occult Blood Urine UA 2+ (Negative); Protein Urine UA TRACE (Negative); Urobilinogen Urine UA 0.2 E.U./dL (0.2); pH Urine UA 5.5 (4.5-8.0)
[2021-06-29 09:31] LABS: RBC Urine 5-10/HPF (0-5/HPF)
[2021-06-29 09:32] LABS: Bacteria Urine Moderate (10-30); Culture Indicated Urine Specimen Cultured; Squamous Epithelial Cell Urine 1-5 /HPF (0-5/HPF); WBC Urine 1-5/HPF (0-5/HPF)
--- NOTE | 2021-06-29 10:20 | PC.NURSE ---
Patient had reported that she took two cipro given to her by her before coming into the hospital. Provided education on antibiotic stewardship and risks of taking unprescribed medications.
== END 2021-06-29 10:21 | disposition home or self-care (01) ==
PROVIDERS: Emergency Provider Emergency Medicine
DX: K57.32 Diverticulitis of large intestine without perforation or abscess without bleeding (principal); N39.0 Urinary tract infection, site not specified
CPT/HCPCS: 36415; 74176; 80053; 81001; 81003; 83605; 83690; 85025; 85610; 85730; 87086; 99283; 99284

== ENCOUNTER → 2022-09-16 11:30 | Outpatient (CLI) | payer OTHER, SELFPAY ==
[2019-10-10 17:45] VITALS: BMI 27.1
[2022-09-16 12:18] LABS: Add Manual Diff / Slide Review NO; Basophils Absolute Auto 100 /uL (0-100); Basophils Percent Auto 1.2 % (0-2); Eosinophils Absolute Auto 100 /uL (0-450); Hematocrit 39.9 % (36-46); Hemoglobin 13.8 g/dL (12.0-16.0); Lymphocytes Absolute Auto 1900 /uL (1100-4500); Lymphocytes Percent Auto 35.6 % (25-40); Mean Corpuscular HGB Conc 34.6 % (30-36); Mean Corpuscular Volume 92.4 fL (80-100); Monocytes Absolute Auto 500 /uL (0-900); Monocytes Percent Auto 8.6 % (3-14); Neutrophils Absolute Auto 2800 /uL (1500-7000); Neutrophils Percent Auto 52.6 % (50-75); Platelet Count 327 X10^3/uL (150-400); Red Blood Cell Count 4.32 X10^6/uL (4.0-5.2); Red Cell Distribution Width 13.2 % (11.6-14.8); White Blood Cell Count 5.3 X10^3/uL (4.5-11.0)
[2022-09-16 12:42] LABS: BUN Creatinine Ratio 27.4 (6-22); Blood Urea Nitrogen 26 mg/dL (7-17); Calcium 9.3 mg/dL (8.4-10.2); Carbon Dioxide 28 mmol/L (22-32); Chloride 101 mmol/L (98-107); Estimated Glomerular Filt Rate > 60 mL/min (>60); Glucose 88 mg/dL (80-110); HEMOLYSIS < 15 (0-50); Potassium 4.7 mmol/L (3.4-5.1); Sodium 135 mmol/L (137-145)
[2022-09-16 13:26] LABS: Appearance Urine UA CLEAR; Bilirubin Urine UA NEGATIVE (NEGATIVE); Color Urine UA YELLOW; Glucose Urine UA NEGATIVE (Negative); Ketones Urine UA NEGATIVE (NEGATIVE); Leukocyte Esterase Urine UA NEGATIVE (NEGATIVE); Nitrite Urine UA POSITIVE (Negative); Occult Blood Urine UA TRACE-INTACT (Negative); Protein Urine UA NEGATIVE (Negative); Urobilinogen Urine UA 0.2 E.U./dL (0.2)
[2022-09-16 13:36] LABS: Bacteria Urine Many (>30); Culture Indicated Urine Specimen Cultured; RBC Urine 0-1/HPF (0-5/HPF); Squamous Epithelial Cell Urine None Seen (0-5/HPF); WBC Urine 1-5/HPF (0-5/HPF)
[2022-09-17 06:02] LABS: x Labcorp Estim. Avg Glu (eAG) 105 mg/dL (.); x Labcorp Hemoglobin A1c 5.3 % (4.8-5.6)
== END ==
PROVIDERS: PCP Naturopath; Referring Provider Orthopaedic Surgery; Visit Provider Orthopaedic Surgery
DX: Z01.818 Encounter for other preprocedural examination (principal); Z01.812 Encounter for preprocedural laboratory examination; R73.9 Hyperglycemia, unspecified; N39.0 Urinary tract infection, site not specified
CPT/HCPCS: 36415; 80048; 81001; 83036; 85025; 87077; 87086; 87186; 93005; 93010

== ENCOUNTER 2022-12-15 11:46 | Day surgery (SDC) | payer OTHER, SELFPAY ==
[2019-10-10 17:45] VITALS: BMI 27.1
[2022-11-29 12:41] VITALS: BMI 27.9
[2022-12-15] VITALS (9 sets, daily range): BP systolic 98–140; BP diastolic 48–80; PULSE 63–82; RESP 14–20; TEMP 36.3–36.7; O2SAT 95–98; BMI 27.1
--- NOTE | 2022-12-15 | DI.RAD.S_ITS ---
PROCEDURE: XR HIP W PEL IF DONE RT 2V INDICATIONS: INTEROP TECHNIQUE: 2 views of the hip were acquired. COMPARISON: [facility], [place], XR HIP W PEL IF DONE RT 2V, 12/15/2022, 15:39. [facility], [place], XR HIP W PEL IF DONE LT 2V, 10/10/2019, 16:00. FINDINGS: Bones: Left hip arthroplasty is present. Postsurgical changes following right hip arthroplasty, appearing in appropriate position. Soft tissues: No suspicious calcifications. IMPRESSION: Postsurgical changes following right hip arthroplasty. Dictated by: Jerome Fernández M.D. on 12/15/2022 at 18:01 Approved by: Jerome Fernández M.D. on 12/15/2022 at 18:01
--- NOTE | 2022-12-15 06:00 | DI.RAD.S_ITS ---
PROCEDURE: XR HIP W PEL IF DONE RT 2V INDICATIONS: INNER OP TECHNIQUE: 2 views of the hip were acquired. COMPARISON: [facility], , XR HIP W PEL IF DONE LT 2V, 10/10/2019, 16:00. FINDINGS: Intraoperative C-arm images demonstrate placement of a right hip arthroplasty with prosthetic components in expected positions. IMPRESSION: C-arm images demonstrating placement of right hip arthroplasty. Dictated by: Fede Pereyra RR Interpreted: Raymon Messina MD on 12/15/2022 at 16:47 Approved by: Raymon Messina M.D. on 12/15/2022 at 17:39
[2022-12-15] MEDS: ACETAMINOPHEN 325 MG TABLET 975 MG PO (12:25)
[2022-12-15] MEDS: CELECOXIB 200 MG CAPSULE PO (12:26)
[2022-12-15] MEDS: PREGABALIN 75 MG CAPSULE PO (12:26)
[2022-12-15] MEDS: LACTATED RINGERS 1,000 ML 42 ML IV (12:27)
[2022-12-15] MEDS: VANCOMYCIN 1,000 MG/200 ML PIGGYBACK 200 MG IV (13:15)
--- NOTE | 2022-12-15 13:45 | PM.PREOP ---
Pre-operative Note Interval Note History & Physical reviewed/Exam performed by Physician: Yes Changes to H&P: No
--- NOTE | 2022-12-15 13:46 | PM.OP.1 ---
Operative Date/Time/Diagnoses Date of procedure: 12/15/22 Time of procedure: 14:30 Pre-op diagnosis: right hip OA Post-op diagnosis: same Procedure & Clinicians Procedure: Right total hip arthroplasty anterior approach Same procedure as scheduled: Yes Indications: The patient has had progressively worsening right hip pain with radiographic changes consistent with arthritis. Non-operative management has failed and the patient has requested total hip replacement. The risks, benefits and alternatives to surgery were discussed with the patient prior to proceeding. Risks discussed included, but were not limited to, failure to relieve pain, leg length discrepancy, dislocation, stiffness, infection, nerve damage, deep venous thrombosis, pulmonary embolism, stroke, coma, heart attack, permanent paralysis and , as well as the potential need for eventual revision of the prosthetic. Surgeon: Jen Vargas Clinical Material Handler: Guillermina Laws Anesthesia Type: Spinal and Sedation Operative Notes Findings: Severe right hip OA adequate bone instability Closure Type: primary Specimen(s): none sent Prosthetic devices, grafts, tissues, transplants, or devices: Vargas [employer] Nephew size 52 R3 cup, neutral poly liner,one 6.5 mm screw, size 3 standard offset anthology, -3 x 36 Oxinium head,one 6.5 mm screw Estimated Blood Loss (mL): 250 Blood products transfused: none Procedure in detail: The patient was brought to the operating room. Patient was carefully positioned in the supine position. Time-out was performed and antibiotics were given. Anesthesia was induced. She was positioned in the on the table in order to allow hyperextension of the hip. The right lower extremity was prepped and draped in a standard sterile fashion. An anterior right hip incision was made 1 fingerbreadth lateral to the anterior superior iliac spine and extended distally towards the greater trochanter. Dissection was carried out through skin and subcutaneous tissues. Superficial hemostasis was achieved. The fascia over the tensor fascia veda was defined and incised with a knife. Two Allis clamps were used to grasp the fascia. Tensor fascia veda was retracted laterally. A gelpi retractor was placed. Dissection was carried out down along the neck. The circumflex vessels were carefully identified and cauterized with the Aqua Mantis. A PA was used it throughout the procedure and was essential for retraction and safe implantation of the components. There was good visualization of the femoral neck. A Cobra was placed superior to the neck and the gluteus fibers were carefully stripped from that superior aspect of the capsule. A 2nd retractor was placed along the inferior aspect of the neck. The rectus insertion along the capsule was partially released. A 3rd retractor that was then gently placed over the rim of the acetabulum under the rectus. Capsule was carefully incised and released from the intertrochanteric line circumferentially superior to the mid sagittal line and inferiorly to the mid sagittal line until the lesser trochanter was palpable. A tag stitch was placed both in the superior and inferior limb of the capsular insertion. Along the acetabulum capsule was also released up to the mid sagittal 12:00 position. A portion of the labrum was resected. A saw was used to perform an osteotomy at the level of the intertrochanteric line and the junction of the superior femoral neck leaving approximately 1 finger breath of residual inferior neck above the lesser trochanter. A 2nd cut was made along the femoral neck at the base of the head and a napkin ring of neck was removed. Corkscrew was placed in the femoral head and the head was removed without difficulty. Retractors were then repositioned around the acetabulum. Residual labrum was resected and additional osteophytes were removed. A reamer that was 4 mm below the templated size was placed by hand in the acetabulum and it was reamed to centralize the acetabulum. It was then reamed up to 2 under the templated size and fluoroscopy was brought in to confirm the position of the reaming and depth of reaming. I reamed 1 under the anticipated size. A trial cup was placed and noted that it was appropriately sized and fluoroscopy confirmed position and depth. The component was open and inserted without difficulty fluoroscopic imaging was used to confirm that the cup had been adequately seated and was well positioned. It was further stabilized with a single screw. Neutral poly liner was placed. The cup was tested and noted to be stable. Attention was then directed to the femur. The femur was gently hyperextended additional capsular release was performed as needed in order to allow adequate visualization of the proximal femur with elevation of the femur. Patient was placed in a hyperextended slightly adducted position with maximum external rotation. Box osteotome was used to check for any residual neck as well as sclerotic bone along the trochanter. Pemberton pepper was placed in the femur. Additional broaching was performed. Canal finder was used to determine the alignment of the canal and position. Size 1 broach was placed. The canal was then appropriately broached up to the templated size as long as there was adequate stability of the broach and serial advancement of the broach without excessive impingement. Specific attention was directed at avoiding varus attempting to direct the distal aspect of the broach more anteriorly and avoiding excessive anteversion. Trial reduction showed acceptable range of motion, good stability, no posterior impingement, jehovah's witness of leg length and appropriate lateral shuck. I also hyperflexed the hip and checked that there was no impingement anteriorly and there was good stability with flexion, adduction and internal rotation. Marcaine and Exparel were injected. The stem was placed without difficulty. Repeat trial reduction and x-ray showed acceptable overall position, length, and no evidence of the femoral fracture. Final head was placed. Wound was meticulously irrigated with normal saline. The hip was reduced and additional Exparel and Marcaine were injected. The capsule was closed with interrupted nonabsorbable sutures. The fascia of the tensor was closed with interrupted and running Vicryl. No drain was placed. Any tensor fascia veda muscle that appeared to be contused or injured which was a minimal amount was carefully resected. Capsule around the tensor was injected with Exparel and Marcaine. The skin was closed with barbed stitches for the subcutaneous tissue and skin. We also used surgical glue. The wound was dressed sterilely. Brief Betadine soak was also used and was meticulously irrigated with normal saline. Patient was transferred to recovery room in satisfactory condition. Complications: none Post-operative Condition: stable Disposition: Acute Care Plan for aftercare: The patient will be maintained on a standard total hip replacement protocol with weight bearing as tolerated and anterior hip precautions. The patient will receive Aspirin and sequential compression devices for DVT prophylaxis. The patient will be discharged home when safe for the home environment.
[2022-12-15] MEDS: CEFAZOLIN 2 GM/100 ML PREMIX 100 ML IV ×2 (14:30→22:26)
--- NOTE | 2022-12-15 14:40 | SUR.OPER ---
Supine on padded [place] table with bilateral legs secured in padded positioning boots and suspended in positioning spars, operative leg in traction per surgeon. Head on one pillow. Arm on non-operative side secured on padded armboard <90 degrees abduction. Arm on operative side padded and resting across chest then secured with tape over sheet. Padded perineal post in place per surgeon.
[2022-12-15] MEDS: BUPIVACAINE LIPOSOME 266 MG/20 ML VIAL INJ (14:47)
[2022-12-15] MEDS: BUPIVACAINE 0.25% (PF) 60 ML, EPINEPHrine 0.3 MG INJ (14:48)
[2022-12-15] MEDS: TRANEXAMIC ACID 1,000 MG VIAL 2000 MG INJ ×2 (15:06→16:36)
[2022-12-15] MEDS: OXYCODONE IR 5 MG TABLET PO (18:16)
[2022-12-15] MEDS: LACTATED RINGERS 1,000 ML 100 ML IV (18:18)
[2022-12-15] MEDS: IBUPROFEN 400 MG TABLET PO ×2 (18:28→21:40)
[2022-12-15] MEDS: ACETAMINOPHEN 325 MG TABLET 650 MG PO (18:29)
[2022-12-15] MEDS: ASPIRIN EC 81 MG TABLET PO (21:40)
[2022-12-15] MEDS: DOCUSATE 100 MG CAPSULE PO (21:40)
[2022-12-16] MEDS: ACETAMINOPHEN 325 MG TABLET 650 MG PO ×2 (00:06→05:38)
[2022-12-16] MEDS: IBUPROFEN 400 MG TABLET PO ×3 (01:59→08:58)
[2022-12-16 02:00] VITALS: BP 107/64; PULSE 70; RESP 18; TEMP 36.7; O2SAT 94
[2022-12-16 05:00] VITALS: BP 122/71; PULSE 76; RESP 18; TEMP 36.8; O2SAT 97
[2022-12-16] MEDS: CEFAZOLIN 2 GM/100 ML PREMIX 100 ML IV (05:38)
[2022-12-16 05:48] LABS: Hematocrit 35.2 % (36-46); Hemoglobin 12.2 g/dL (12.0-16.0)
--- NOTE | 2022-12-16 07:18 | P.DS_ITS ---
History of Present Illness History of Present Illness Date Patient Seen: 12/16/22 Time Patient Seen: 07:18 Chief complaint: Right VIRGIL *OPB* Narrative: Operative Date/Time/Diagnoses Date of procedure: 12/15/22 Time of procedure: 14:30 Pre-op diagnosis: right hip OA Post-op diagnosis: same Procedure & Clinicians Procedure: Right total hip arthroplasty anterior approach Same procedure as scheduled: Yes Indications: The patient has had progressively worsening right hip pain with radiographic changes consistent with arthritis. Non-operative management has failed and the patient has requested total hip replacement. The risks, benefits and alternatives to surgery were discussed with the patient prior to proceeding. Risks discussed included, but were not limited to, failure to relieve pain, leg length discrepancy, dislocation, stiffness, infection, nerve damage, deep venous thrombosis, pulmonary embolism, stroke, coma, heart attack, permanent paralysis and , as well as the potential need for eventual revision of the prosthetic. Surgeon: Jen Vargas Director Of Home Health Services: Guillermina Laws Anesthesia Type: Spinal and Sedation Operative Notes Findings: Severe right hip OA adequate bone instability Closure Type: primary Specimen(s): none sent Prosthetic devices, grafts, tissues, transplants, or devices: Vargas [employer] Nephew size 52 R3 cup, neutral poly liner,one 6.5 mm screw, size 3 standard offset anthology, -3 x 36 Oxinium head,one 6.5 mm screw Estimated Blood Loss (mL): 250 Blood products transfused: none Discharge Providers Provider Discharge Date: 12/16/22 Primary care physician: Lucie Muhammad ND Consults: 12/15/22 06:00 Consult to Anesthesiology Routine Comment: Consulting Provider: Anesthesiologist Reason for consultation: Regional block for post operative pain control 12/15/22 17:56 Consult to Discharge Planning Routine Comment: Consult to Occupational Therapy Evaluate & Treat Comment: Physician Instructions: Evaluate and treat Consult to Physical Therapy Evaluate & Treat Comment: Physician Instructions: post op VIRGIL protocol Discharge provider: Guillermina Laws PA-C Summary Hospital Course Discharge Diagnosis: Right hip osteoarthritis, s/p right total hip arthroplasty Hospital Course: Ms Ruiz'cole hospital course was unremarkable. On the morning of POD# 1, she was feeling well and wanted to go home. She had been OOB but had not yet worked w/ PT. She was eating and voiding without difficulty. Her pain was well- controlled with oral medication. Exam Vital Signs (past 8 hours): - 12/16/22 02:00 12/16/22 05:00 Temperature 98.0 F 98.2 F Pulse Rate 70 76 Respiratory Rate 18 18 Blood Pressure 107/64 122/71 Pulse Oximetry 94 97 Oxygen Flow Rate 0 0 Oxygen Delivery Method Room Air Oxygen Flow Rate 0 Narrative Exam Narrative: 5/5 strength in hip flexors, quadriceps, hamstrings, DF, PF, EHL on right. Sensation to light touch intact througout RLE. Calf soft, compressible, nontender. Aquacel dressing w/ scant bloody drainage. Objective Labs 12/16/22 05:37 Labs: Laboratory Results - last 24 hr 12/16/22 05:37 Hgb 12.2 Hct 35.2 L PFSH Medical History (Updated 11/29/22 @ 13:13 by Brnadi Pradhan RN) History of COVID-19 (~2019) Migraines Surgical History (Updated 11/29/22 @ 12:42 by Brandi Pradhan RN) History of bunionectomy of left great toe (10/2018) History of partial hysterectomy History of total left hip replacement (10/10/19) Hx of foot surgery (10/2018) Hx of left breast biopsy (10/02/19) Hx of tonsillectomy S/P LASIK surgery of both eyes Social History household members: spouse Smoking Status: Never smoker alcohol intake: current Discharge Assessment & Plan Assessment and Plan Assessment: Right hip osteoarthritis, s/p right total hip arthroplasty Plan of Treatment: Discharge home after PT if PT agrees. Pt was given d/c rxs preoperatively in office. ASA BID x 6 weeks for VTE prophylaxis, outpt PT, multimodal pain control, f/u in office in 2 weeks as scheduled. Discharge Plan Discharge Plan Patient Disposition: Home Discharge orders & Medications Discharge Orders: Discharge (Order); Ordered 12/16/22 Ordered By: Guillermina Laws Prescriptions: Continued sumatriptan succinate [Imitrex] 100 mg Tablet 50 mg PO Q2-4H PRN (Reason: Migraines) ibuprofen 200 mg Capsule 400 mg PO Q6H PRN (Reason: Pain) Follow up/Referrals: Lucie Muhammad ND [Primary Care Provider] - Jen Vargas MD [Physician] - As previously scheduled (Follow up with Yao Stokes PA-C, on 12/28/2022 @ 3:10 pm at [facility] office in [place].) Diet/Activity/Treatments Diet: Diet as Tolerated Activity: Weightbearing as tolerated to right leg. Anterior hip precautions. Cold/Heat Therapy: Ice to hip as needed for pain. Skin/Wound/Dressing Care Report to your healthcare provider any signs of infection, such as:: chills, fever, night sweats, unusual drainage and unusual redness Dressing: May shower. Leave Aquacel dressing in place until follow up in office. No bathing or otherwise soaking incision. Call the office if the dressing becomes saturated inside. Visit Report/Discharge Packet Instructions: DI for Hip Replacement Stand Alone Forms: Patient Portal/API, Surgery Discharge Discharge Data Primary Care Provider: Lucie Muhammad Attending Provider: Jen Vargas
[2022-12-16 08:09] VITALS: BP 106/62; PULSE 66; RESP 18; TEMP 35.9; O2SAT 97
[2022-12-16] MEDS: ASPIRIN EC 81 MG TABLET PO (08:58)
[2022-12-16] MEDS: DOCUSATE 100 MG CAPSULE PO (08:58)
--- NOTE | 2022-12-16 09:12 | PT.IIE ---
Addendum entered and electronically signed by Theresa Landers PT 12/16/22 11:36: sent to physician for signature on plan of care Original Note: Current Diagnoses Unilateral primary osteoarthritis, right hip (12/15/22) Pain in right hip (12/15/22) Surgery Performed Operation Date: 12/15/22 13:45 Actual Procedures p Total Hip Arthroplasty/Anterior Approach(Right) - Jen Vargas MD Surgical History (Last Updated 11/29/22 @ 12:42 by Brandi Pradhan RN) History of bunionectomy of left great toe (10/2018) History of partial hysterectomy History of total left hip replacement (10/10/19) Hx of foot surgery (10/2018) Hx of left breast biopsy (10/02/19) Hx of tonsillectomy S/P LASIK surgery of both eyes Medical History (Last Updated 11/29/22 @ 13:13 by Brandi Pradhan RN) History of COVID-19 (~2019) Migraines Physical Therapy Inpatient Evaluation/Re-Eval M1 PT/OT-IP Prior Functional Status Start: 12/16/22 09:13 Freq: NEEDED Status: Active Protocol: Document 12/16/22 09:12 DLM (Rec: 12/16/22 09:27 DLM [id number]) Medical Review Prior Functional Status Medical History Reviewed Yes Diet/Fluid Consistency Regular Communication WNL, glasses Mobility and Gait Independent without a device, community distances Activities of Daily Living and IADL's Independent Prior Functional Level (Other details) she likes to hike Social History Household Members spouse Living Arrangements House Number of Floors (Floors) One Floor Number of Stairs To Enter/Railing? one step to enter, brick 1/2 wall close to hold Home Environment Standard Height Toilet,Walk in Shower,Built-In Shower Seat Home Equipment Front Wheel Walker,Hand Held Shower Additional Social History Comment she has an electric recliner M2 PT-IP Current Condition Start: 12/16/22 09:13 Freq: NEEDED Status: Active Protocol: Document 12/16/22 09:12 DLM (Rec: 12/16/22 09:27 DLM [id number]) Physical Therapy Current Condition Current Condition Evaluation Date 12/16/22 Treatment Diagnosis right anterior VIRGIL, impaired gait Onset Date 12/15/22 M3 PT-IP Subjective Start: 12/16/22 09:13 Freq: NEEDED Status: Active Protocol: Document 12/16/22 09:12 DLM (Rec: 12/16/22 09:27 DL [id number]) Subjective Physical Therapy Visit Type Type Initial Evaluation Visit Start Time 08:35 Visit Stop Time 09:12 Total Visit Minutes 37 Number of LAUNDRY CLERK Visits 0 Physical Therapy Visit Comments Patient Comments She reports her pain is very little today. She feels she will be safe to go home today. Patient Goals Discharge home Therapy Pain Assessment Pain When Pain Assessed After Treatment Pain Present Pain Present Pain Reported Location Right Anterior Hip Intensity 1 Scale Used Numeric (0 - 10) Description Aching,Tender,With Movement Pain Management Techniques Apply Cold,Timing of Activity with Medications M4 PT-IP Mobility and Gait Start: 12/16/22 09:13 Freq: NEEDED Status: Active Protocol: Document 12/16/22 09:12 DLM (Rec: 12/16/22 09:27 DL [id number]) PT-Bed Mobility Assessment Supine to Sit Supine to Sit Independent Sit to Supine Sit to Supine Independent Scooting Scooting to Edge of Bed Independent Scooting Up and Down in Bed Independent PT-Transfer Assessment Sit to and From Stand Sit to and from Stand Independent,Use of Upper Extremities Equipment Transfer Assistive Device Gait Belt,Front Wheeled Walker Transfers Transfer Destination Bed,Chair,Toilet Transfer Technique Stand Step Pivot Transfer Ability Level of Assist Independent,Use of Upper Extremities Comments Mobility Comments She demonstrates good uses of her UE's to assist with sit- stand as needed. Pt up to toilet with nursing before this visit to urinate. Pt left up in recliner at the end of this session with ice on right thigh area for swelling and tenderness. Pt uses her left LE to assist her right LE in and out of bed. Gait Assessment Gait Gait Assistance Required: Independent Distance (Feet) 200 Able to Maintain Weight Bearing Status Yes During Gait Assistive Devices Assistive Device Gait Belt,Front Wheeled Walker Gait Deviations General Gait Pattern Antalgic,Decreased Stride Length Factors Limiting Gait Function Factors Limiting Gait Function Decreased Activity Tolerance, Decreased Strength,Limited Range of Motion,Pain Comments Gait Comments she demonstrates safe use of the FWW, verbal reminders given to take her time and use FWW all the time at this stage of her recovery Stair Climbing Assessment Evaluation Level of Assist On Stairs Independent Devices Stair Climbing Assistive Devices Front Wheel Walker Technique/Endurance Stair Climbing Direction Ascend and Descend Stair Climbing Technique Step to Step Number of Steps Climbed 1 Query Text: Stair Climbing Set # Repetitions (reps) 2 Comments Stair Climbing Comments educated pt in sequencing to go up/down steps to manage right hip pain, pt can manage the FWW on the platform step PT-Balance Assessment Sitting Balance and Reactions Static Sitting Balance Ability Normal Dynamic Sitting Balance Ability Normal Standing Balance and Reactions Static Standing Balance Ability Good Dynamic Standing Balance Ability Good Device Used fWW M5 PT-IP Objective Assessments Start: 12/16/22 09:13 Freq: NEEDED Status: Active Protocol: Document 12/16/22 09:12 DL (Rec: 12/16/22 09:27 [facility] [id number]) Orientation Orientation/Cognition Level of Alertness Alert Orientation Name,Age,Birthday,Month,Date, Year,Day of Week,Place, Situation Language Function Ability No Deficits Noted Safety Awareness Understands Safety Issues Memory Description No Deficits Noted Gross Range of Motion Upper Extremity ROM Assessment Within Functional Limits Lower Extremity ROM Assessment Right Impaired Impairments anterior hip precautions with soreness in hip Strength Lower Extremity Strength Assessment Right Impaired Hip needs assist to lift LE off bed Knee ext 4/5 with quad soreness Ankle DF 5/5 Coordination Assessment Gross Coordination Gross Coordination WNL Sensation Assessment Sensation Gross Sensation WNL Muscle Tone Muscle Tone WNL Yes M6 PT-IP Treatment Start: 12/16/22 09:13 Freq: NEEDED Status: Active Protocol: Document 12/16/22 09:12 DL (Rec: 12/16/22 09:27 [facility] [id number]) Physical Therapy Treatment Exercises Exercises Ankle Pumps,Gluteal Sets,Quad Sets,Heel Slides Education Education Provided Precautions,Weight Bearing Status,Post-Op Packet,Safety Other Treatments Other Treatment Performed educated pt in her anterior hip precautions, reviewed written HEP and performed at least 5 reps of each exercise, provided written home packet Pt has questions about dressing which I will defer to Occupational Therapy to answer. M7 PT-IP Assessment and Plan Start: 12/16/22 09:13 Freq: NEEDED Status: Active Protocol: Document 12/16/22 09:12 DL (Rec: 12/16/22 09:27 [facility] [id number]) PT Summary Assessment and Plan Potential Rehabilitation Potential Excellent Status of Condition at Evaluation Evolving Summary Impairments Pain,ROM,Strength,Balance,Bed Mobility,Transfers,Gait, Activity Tolerance Progress Towards Goals Safe For Discharge,Goals Met Assessment Summary Mary is alert and up to the toilet at the start of this visit. She has been up with nursing since surgery. She demonstrates good progress post-op. She reports her pain is well controlled. She tolerated gait in the clark well with the FWW. She completed her stair training. She was educated in her hip precautions and home exercise program (HEP). She has questions about ADL's which I will defer to Occupational Therapy today. No family present during this treatment. Patient appears safe to discharge home with support of her Spouse when she is medically cleared. Her nurse was notified. Frequency of Treatment Frequency Of Treatment Discharge Treatment Plan Other Recommendations and Next Treatment training completed this visit Focus Precautions Anterior Hip Precautions No Hip Extension,No Hip External Rotation Weight Bearing Status Weight Bearing Status Weight Bear as Tolerated Allowed Weight Bearing Amount (enter % right LE with FWW or #) (%) Recommendations To Nursing Amount of Assist Needed Standby Assistance Discharge Recommendations PT Discharge Recommendations Home with Assistance, Outpatient PT Other Discharge Recommendations has support of Spouse, has out -pt PT schedule to start in 2 weeks Transportation Needs at Discharge Private Vehicle
--- NOTE | 2022-12-16 09:35 | OT.IP.EVAL ---
Current Diagnoses Unilateral primary osteoarthritis, right hip (12/15/22) Pain in right hip (12/15/22) Surgery Performed Operation Date: 12/15/22 13:45 Actual Procedures p Total Hip Arthroplasty/Anterior Approach(Right) - Jen Vargas MD Past Medical History (Last Updated 11/29/22 @ 13:13 by Brandi Pradhan, RN) History of COVID-19 (~2020) Migraines Surgical History (Last Updated 11/29/22 @ 12:42 by Brandi Pradhan RN) History of bunionectomy of left great toe (10/2018) History of partial hysterectomy History of total left hip replacement (10/10/19) Hx of foot surgery (10/2018) Hx of left breast biopsy (10/02/19) Hx of tonsillectomy S/P LASIK surgery of both eyes Occupational Therapy Inpatient Evaluation/Re-Eval M1 PT/OT-IP Prior Functional Status Start: 12/16/22 10:56 Freq: NEEDED Status: Active Protocol: Document 12/16/22 09:35 [facility] (Rec: 12/16/22 11:15 [facility] [id number]) Medical Review Prior Functional Status Medical History Reviewed Yes Diet/Fluid Consistency Regular Communication WNL, glasses Mobility and Gait Independent without a device, community distances Activities of Daily Living and IADL's Independent but with pain. Prior Functional Level (Other details) she likes to hike Social History Household Members spouse Living Arrangements House Number of Floors (Floors) One Floor Number of Stairs To Enter/Railing? one step to enter, brick 1/2 wall close to hold Home Environment Standard Height Toilet,Walk in Shower,Built-In Shower Seat Home Equipment Front Wheel Walker,Hand Held Shower Additional Social History Comment she has an electric recliner M2 OT-IP Current Condition Start: 12/16/22 10:56 Freq: Status: Active Protocol: Document 12/16/22 09:35 [facility] (Rec: 12/16/22 11:15 [facility] [id number]) Occupational Therapy Current Condition Current Condition Evaluation Date 12/16/22 Treatment Diagnosis S/P L VIRGIL anterior Diagnosis Onset Date 12/15/22 M3 OT- IP Subjective and Pain Start: 12/16/22 10:56 Freq: Status: Active Protocol: Document 12/16/22 09:35 [facility] (Rec: 12/16/22 11:15 [facility] [id number]) OT- Subjective Occupational Therapy Visit Type Type Initial Evaluation Visit Start Time 09:35 Visit Stop Time 09:45 Total Visit Minutes 10 Occupational Therapy Visit Comments Patient Comments Pt agreed to work with OT. Patient/Caregiver Goals To go home. OT Pain Assessment Pain When Pain Assessed At Rest Pain Present Pain Present Denied Pain M4 OT- IP ADL's Start: 12/16/22 10:56 Freq: Status: Active Protocol: Document 12/16/22 09:35 [facility] (Rec: 12/16/22 11:15 [facility] [id number]) OT GAI-Zydk-Ftyasha General Evaluation Self-Feeding Ability Independent OT ADL-Grooming General Evaluation Grooming Ability Independent OT ADL-Dressing General Eval Lower Body Dressing Ability Standby Assistance Comments OT Dressing Comments Initial educated of how to matty her pants/socks that is would be best to prop her foot up on a surface to increase her reach or use of grades 1 6 tutor if needed. OT ADL-Toileting Comments OT Toileting Comments Suggested to wear pad at night so not having to hurry to the bathroom. OT ADL-Bathing Comments OT Bathing Comments Pt states her is able to assist. M5 OT- IP IADL's Start: 12/16/22 10:56 Freq: Status: Active Protocol: Document 12/16/22 09:35 [facility] (Rec: 12/16/22 11:15 [facility] [id number]) OT-Instrumental Activities of Daily Living Home Safety Awareness Awareness of Need for Assistance at Home Good Awareness Ability to Problem Solve Emergency Able to Problem Solve Situations M6 OT- IP Functional Cognition Start: 12/16/22 10:56 Freq: Status: Active Protocol: Document 12/16/22 09:35 [facility] (Rec: 12/16/22 11:15 [facility] [id number]) Cognitive Factors Limiting Selfcare Function Cognitive Ability Level of Alertness Alert Patient Orientation Name,Age,Birthday,Month,Date, Year,Day of Week,Place, Situation Attention Span Ability Capable of Focused Attention, Capable of Sustained Attention Ability to Follow Commands Able to Follow Multi-Step Commands Cognitive Comments Cognitive Assessment Comments Pt is intact. OT- Vision and Hearing OT- Hearing Assessment OT- Hearing Assessment WFL M7 OT- IP Mobility and Balance Start: 12/16/22 10:56 Freq: Status: Active Protocol: Document 12/16/22 09:35 [facility] (Rec: 12/16/22 11:15 [facility] [id number]) OT-Transfer Assessment Sit to and From Stand Sit to and from Stand Independent Transfers Transfer Ability Independent OT- Balance Assessment Sitting Balance and Reactions Static Sitting Balance Ability Normal Dynamic Sitting Balance Ability Normal Standing Balance and Reactions Static Standing Balance Ability Good Dynamic Standing Balance Ability Good M9 OT- IP Assessment and Plan Start: 12/16/22 10:56 Freq: Status: Active Protocol: Document 12/16/22 09:35 [facility] (Rec: 12/16/22 11:15 [facility] [id number]) OT Summary Assessment and Plan Potential Rehabilitation Potential Excellent Analytic Complexity at Evaluation Low Summary OT Impairments Functional Mobility,Dressing, Bathing Progress Towards Goals Progressing Toward Goals Assessment Summary Pt low complexity and doing well. OT able to go over dressing techniques in order to best follow her anterior precautions and also talk on safety needs for toileting at night. Pt to go home with her and have outpt PT. Goals Dressing Goal Independent Toileting Goal Independent Bathing Goal Independent Days to Meet Goals 1 Frequency of Treatment Frequency Of Treatment Once a Day Treatment Plan OT Treatment Plan ADL Training,Functional Mobility,Patient/Family Education,Discharge Planning Discharge Recommendations OT Discharge Recommendations Home with Assistance, Outpatient PT Transportation Needs at Discharge Private Vehicle
--- NOTE | 2022-12-16 10:15 | PC.NURSE ---
Pt denies discomfort. Camron dsg to surgical hip CDI HL D/C intct Cleared by PT/OT D/C orders received. Home instructions reviewed w/understanding Pt escorted by staff via W/C to waitinf vehicle in stable status
--- NOTE | 2022-12-16 10:34 | CM.DANOTE ---
DCP Brief Chart Review: patient is a 67yo female here following planned right VIRGIL with Dr. Vargas on 12.15.22. \ PCP Lucie Muhammad Payer [employer] and self pay [employer] reviewed EMR. Patient left prior to conversation with this author. PT/OT report patient is moving well. From PT/OT patient lives at home with spouse Scott. No needs from CM team. Plan: patient d/c home with spouse in POV. No needs. CM team will follow as needed. TREMAINE Ohara Discharge Planning/Care Management CM Discharge Assessment Start: 12/16/22 10:31 Freq: Status: Active Protocol: Document 12/16/22 10:31 SL (Rec: 12/16/22 10:34 [id number]) Discharge Planning Assessment Assigned [employer] Police Officer TREMAINE Santana DPOA/Assigned Designee Name Scott Ruiz (spouse) Contact Information [phone] Advance Directives? No History Provided By Medical Record Prior Living Arrangements House Household Members spouse Independent with ADL's Yes: per chart Is patient alert and oriented? Yes: per chart DME Already Rented / Owned Bath Bench,FWW / Walker Comment Standard Height Toilet,Walk in shower, shower seat, FWW, Discharge Plan Home Transportation Arrangement family in POV Whiteboard Updated in Patient Room with No name and ext. # of Transit [employer] Police Officer Review Status In Process Next Review Type Continued Stay Review Pre-Anesthesia Assessment Start: 11/29/22 12:41 Freq: Status: Discharge Protocol: Document 11/29/22 12:41 CAB (Rec: 11/29/22 13:23 CAB [id number]) Pre-Anesthesia Assessment Preferred Name Che Patient Information Reviewed Via Phone Assessment Assessment Completed With Patient Diagnostic Results BMP/CMP,CBC,EKG,Urinalysis Comment Labs/EKG @ 09/16/22 Primary Care Provider Rin Collins Seen Specialist in Last 12 Months Yes Specialist Seen Orthopedist Primary Language Spanish Preferred Language Spanish Student Services Advisor Required No Height 165.1 cm Weight 76.204 kg Body Mass Index (BMI) 27.9 Hearing Ability Normal Visual Assist Contacts,Glasses Dentition Type Teeth, Natural Present Barriers to Learning None Hx Anesthesia Reactions No Hx Family Anesthesia Reaction No Hx Malignant Hyperthermia No Hx Blood Transfusions No Anesthesia Review Requested No Draw Frame Tender No alcohol intake current alcohol intake frequency 0-2 drinks per day Smoking Status Never smoker Substance Use Type does not use Pain Present Pain Reported Musculoskeletal Symptoms Abnormal Gait,Difficulty Walking,Joint Pain History of Falling (Recent or History of No ) Patient is completely paralyzed or No completely immobile Mental Status Oriented to own ability Is patient on oxygen? No Does patient have LOMAX/SOB No Hx Sleep Apnea No Currently Taking a Beta Kishore No Can You Climb a Flight of Stairs Without Yes SOB Hx Chest Pain No Hx SOB No Hx Syncope or Dizziness No Anti-Coagulant Therapy No Has a An/Ssn 2 4 Operator No Cardiac Testing No Hx Pacemaker/ICD No Pacemaker Rep Required? No Cardiac Clearance Received Not Applicable Diet Type At Home Regular Dysphagia No Urinary Catheter Present No Hx Urinary Self Catheterization No Diabetes No HgbA1C 5.3 Date 09/13/22 Patient No Lactating No Hx Drug Resistant Organism No Presence of External or Internal Medical Yes: Left hip prosthesis, left Devices toe pin Received a COVID vaccine? No Marital Status Lives With spouse Current Living Arrangements House Number of Floors (Floors) One Floor Support System Spouse Patient Discharge Plan Description Return Home Comment Pt not advised on length of stay per surgeon Feels Safe in Current Environment Yes Been Physically Hurt or Threatened By a No Person in Current Environment Do you have thoughts of harming yourself None or others? Are you currently considering suicide? No Do you have a plan to hurt yourself or No Plan others? Do You Have Any Spiritual Beliefs That No May Affect Your HC Choices? Do You Have Any Cultural Practices That No May Affect Your HC Choices? Comment Yazdanism Who Can We Speak to About Patient's Care Family, friends Identifying Code for Release of Patient Declines to issue Information Health Care Proxy/Next of Kin Scott Bartlett () Health Care Proxy Emergency Contact Name Scott Bartlett () Emergency Contact Advance Directives? No Power of Music Industry Intern No PAC Instructions Do not shave/clip surgical site,Durable medical equipment ,Medications to take/avoid, Nasal antibiotic,No ETOH/ petroleum product on skin DOS, NPO,Pre-surgical wash,Sensory aids,Sturdy shoes/comfortable clothes,Do not bring valuables and remove jewelry
== END 2022-12-16 10:14 | disposition home or self-care (01) ==
LOC: OR 11:46 → AC 11:50
PROVIDERS: PCP Naturopath; Referring Provider Orthopaedic Surgery; Visit Provider Orthopaedic Surgery
PROC: (CPT 27130; principal; 2022-12-15 13:45)
DX: M16.11 Unilateral primary osteoarthritis, right hip (principal)
CPT/HCPCS: 27130; 36415; 73502; 76000; 85014; 85018; 97110; 97162; 97165; C1776; C9290; J0171; J0690; J1100; J2250; J2405; J2704; J3010